=== PATIENT | male | born 1955 | race Caucasian/White ===

== ENCOUNTER → 2019-05-10 13:08 | Outpatient (CLI) | payer BC, SELFPAY ==
[2014-02-13 13:01] VITALS: BMI 24.4
[2019-05-10 14:28] LABS: Creatinine, Serum 1.09 mg/dL (0.70-1.30); EST Glomerular Filtration Rate 73 mL/min (>60); Est Glom Filt Rate - Afr Amer 88 mL/min (>60)
== END ==
PROVIDERS: Family Provider Nurse Practitioner Family; PCP Nurse Practitioner Family; Referring Provider Specialist; Visit Provider Specialist
DX: R22.32 Localized swelling, mass and lump, left upper limb (principal)
CPT/HCPCS: 36415; 82565

== ENCOUNTER → 2020-05-09 16:37 | Outpatient (CLI) | payer BC, SELFPAY ==
--- NOTE | 2020-05-09 16:39 | CT_ITS ---
STUDY: LOW DOSE CT LUNG CANCER SCREENING REASON FOR EXAM: Male, 64 years old. H/O SMOKING, 2-3 PPD X 35 YRS, COPD, WT-180 RADIATION DOSAGE (If Supplied By Facility): CTDIvol = ( 3.02 ) mGy, DLP = ( 110.23 ) mGycm TECHNIQUE: No contrast was administered. Low dose technique was utilized (average mAS-38 and kVp 120). 1.25 mm axial source images with a slice interval of 1.25-mm were reconstructed in lung windows. 2.5 mm axial source images with a slice interval of 2.5-mm were reconstructed in lung windows. 5.0 mm axial source images with a slice interval of 5.0-mm were reconstructed in soft tissue windows. Nodule measured using lung windows on PACS and/or independent workstation with automated measurement of minimum and maximum diameter. Nodule measurement reported as average diameter rounded to the nearest whole number. Growth is defined as an increase ins size of greater than 1.5 mm. COMPARISON: None. Findings: Lungs are severely emphysematous with scattered scars. There are no high-risk there is a 5 mm left lower lobe peripheral pleural contacting round solid granuloma. There is a right middle lobe calcified benign granuloma. Airways are patent. Pleural surfaces are intact. Mediastinal contents are normal. Osseous structures are intact. CT/Low Dose CT Lung Screening IMPRESSION: 1. Severe emphysema. 2. Low risk, presumably pulmonary granulomata. Follow-up in one year is advised. 3. Lung RADS category 2. IMPORTANT NOTES FOR USE: ACR Lung-RADS Version 1.0 Assessment Categories Release Date: September 13, 2013 Category: Coded 0-4 bases on nodule(s) with highest degree of suspicion. Negative screen is defined as categories 1 and 2; a positive screen is defined as categories 3 and 4. Category 3 and 4A nodules that are unchanged on interval CT should be coded as category 2, and individuals returned to screening in 12 months. Category 4X: Category 3 or 4 nodules with additional imaging findings that increase the suspicion of lung cancer, such as spiculation, GGN that doubles in size in 1 year, enlarged lymph notes, etc. Category Modifiers: S (significant finding unrelated to lung cancer) and C (prior history of treated lung cancer) may be added to the 0-4 Lung-RADS Electronically Signed: Jennifer Montano, at 18:35 EST Tel , Service support ,
== END ==
PROVIDERS: PCP Nurse Practitioner Family; Referring Provider Nurse Practitioner Family; Visit Provider Nurse Practitioner Family
DX: Z12.2 Encounter for screening for malignant neoplasm of respiratory organs (principal); J45.909 Unspecified asthma, uncomplicated; Z87.891 Personal history of nicotine dependence
CPT/HCPCS: G0297

== ENCOUNTER 2020-08-01 13:08 | Outpatient (RCR) | payer BC, SELFPAY ==
[2014-02-13 13:01] VITALS: BMI 24.4
[2020-08-01] MEDS: COVID-19 VACC, MRNA(PFIZER)/PF 30 MCG/0.3 ML SYRINGE IM (15:51)
[2020-08-22] MEDS: COVID-19 VACC, MRNA(PFIZER)/PF 30 MCG/0.3 ML SYRINGE IM (16:18)
== END 2020-08-01 23:59 ==
LOC: IMMUN 13:08
PROVIDERS: PCP Nurse Practitioner Family; Visit Provider Family Medicine
DX: Z23 Encounter for immunization (principal)
CPT/HCPCS: 0001A; 0002A; 91300

== ENCOUNTER 2021-03-06 12:33 | Emergency (ER) | payer BC, SELFPAY ==
[2021-03-06 12:34] VITALS: BP 138/92; PULSE 112; RESP 18; TEMP 36.5; O2SAT 97; BMI 25.1
--- NOTE | 2021-03-06 12:35 | RAD_ITS ---
STUDY: X-RAY CHEST REASON FOR EXAM: Male, 65 years old. Chest pain TECHNIQUE: Single AP portable view of the chest. COMPARISON: Comparison is made with prior study dated 03/10/2014. FINDINGS: There is hyperinflation of the lungs consistent with chronic obstructive lung disease (COPD). There is no demonstrated pleural abnormality. Normal size heart. Normal mediastinum and charmaine. Normal visualized pulmonary arteries. There is atherosclerotic tortuosity of the aortic arch and descending thoracic aorta. There are diffuse degenerative changes of the visualized thoracic spine. Normal visualized ribs, clavicles, and shoulders. There is no demonstrated abnormality of the visualized soft tissue structures of the upper abdomen. RAD/Chest 1 View (Portable) IMPRESSION: Hyperinflation. The lungs are clear. Electronically Signed: Darian Cantor MD at 13:46 EDT , Service support ,
--- NOTE | 2021-03-06 12:35 | EKG12_ITS ---
Test Reason : CP Blood Pressure : / mmHG Vent. Rate : 111 BPM Atrial Rate : 111 BPM P-R Int : 140 ms QRS Dur : 072 ms QT Int : 314 ms P-R-T Axes : 076 072 071 degrees QTc Int : 427 ms Sinus tachycardia Otherwise normal ECG Confirmed by ALONZO SHEIKH, KULDEEP ([id number]), business editor ROSHNI CULP ([id number]) on 03/08/2021 1:46:07 P M Referred By: Confirmed By:JOLEEN ROSADO MD
[2021-03-06 13:10] LABS: Absolute Neutrophil Count 11.4 X10^3/uL (2.0-7.7); Basophil# 0.03 X10^3/uL; Basophil% 0.2 % (0-1); Eosinophil# 0.03 X10^3/uL; Eosinophils% 0.2 % (0-5); Hematocrit 48.2 % (40-54); Hemoglobin 15.6 g/dL (13.0-16.5); Lymphocyte % 6.9 % (19-41); Mean Corp Hgb Conc 32.4 g/dL (32-36); Mean Corpuscular Hgb 29.9 pg (27.0-32.0); Mean Corpuscular Volume 92.3 fL (80-94); Mean Platelet Vol. 10.8 fl (6.2-12.0); Monocyte# 0.59 X10^3/uL; Monocyte% 4.5 % (0-10); NRBC Flagged by Analyzer 0 % (0-5); Neutrophil # 11.37 X10^3/uL (2.7-7.7); Neutrophil % 87.7 % (47-70); Platelet Count 209 K/mm3 (150-450); RBC Distribution Width CV 13.6 % (11.6-14.6); RBC Distribution Width SD 46.3 fl (35.1-43.9); Red Blood Count 5.22 M/mm3 (4.6-6.2)
[2021-03-06 13:28] LABS: Anion Gap 9 (5-15); BUN 19 mg/dL (7-18); Chloride 104 mmol/L (98-107); Creatinine, Serum 1.12 mg/dL (0.70-1.30); EST Glomerular Filtration Rate 70 mL/min (>60); Est Glom Filt Rate - Afr Amer 85 mL/min (>60); Estimated Creatinine Clearance 70.97 ml/min; Glucose 95 mg/dL (74-106); Potassium 4.1 mmol/L (3.5-5.1); Sodium Level 140 mmol/L (136-145); Troponin-I HS 4 pg/mL (3.0-78.0)
--- NOTE | 2021-03-06 14:14 | EX.ED.DYSGE1 ---
HPI History of Present Illness Chief Complaint: Chest Pain Narrative Narrative: Patient is a 65-year-old male who states he was at work today when he had intermittent bouts of left-sided chest discomfort. He describes the discomfort as painful sensation that was more achy in nature but without radiation to his neck arm or back. He denies any nausea vomiting diaphoresis or shortness of breath associated with this. He states that the pain has come and gone since his onset and would typically last for a few minutes and then resolve. He told his boss is about this as it was occurring at work and they advised him to come to the hospital for evaluation. Patient denies any fevers chills or trauma. He denies any recent surgery travel or history of DVT/PE. [facility] Medical History High cholesterol Home Medications ciprofloxacin HCl 500 mg PO BID #10 tablet 02/13/14 [Rx Last Taken Unknown] hydrocodone-acetaminophen 1 - 2 tab PO Q4H PRN PRN #20 tablet 02/13/14 [Rx Last Taken Unknown] ondansetron 4 mg PO Q8H PRN PRN #20 tab 02/13/14 [Rx Last Taken Unknown] Allergy/AdvReac Type Severity Reaction Status Date / Time No Known Allergies Allergy Verified 03/06/21 12:35 Social History Smoking Status: Current some day smoker tobacco type: cigarettes ROS ROS ED Constitutional Constitutional ED: Denies chills or fever(s) ENT ENT ED: Denies sore throat Cardiovascular Cardiovascular: Reports chest pain; Denies palpitations or racing heartbeat Respiratory/Chest Respiratory/Chest: Denies cough or dyspnea Gastrointestinal Gastrointestinal: Denies abdominal pain, diarrhea, nausea or vomiting Genitourinary Genitourinary ED: Denies dysuria Musculoskeletal Musculoskeletal: Denies myalgias Integumentary Denies rash Neurologic Neurologic: Denies headache(s) Hematologic/Lymphatic Hematologic/Lymphatic: Denies easy bleeding or easy bruising EXAM Physical Exam Const Vital Signs: 03/06/21 12:34 03/06/21 13:51 03/06/21 13:53 Temperature 97.7 F L Temperature Source Temporal Pulse Rate 112 H Respiratory Rate 18 Respiratory Effort Normal Non-Labored Blood Pressure 138/92 H Blood Pressure Mean 107 Pulse Ox 97 Oxygen Delivery Method Room Air Room Air 03/06/21 14:25 03/06/21 16:11 Temperature Temperature Source Pulse Rate 103 H 110 H Respiratory Rate 17 16 Respiratory Effort Blood Pressure 156/86 H 127/91 H Blood Pressure Mean 109 103 Pulse Ox 97 97 Oxygen Delivery Method Room Air Room Air Positive well nourished and well developed General Appearance ED: well developed HEENT Reports moist mucous membranes Eyes PERRL and EOMs intact bilaterally Neck supple Chest Wall Chest Narrative: There is mild reproducible left anterior chest wall pain on palpation without bony deformity or crepitance Resp normal respiratory effort Resp Narrative: Breath sounds are diminished throughout with faint expiratory wheeze consistent with remote history of smoking Cardio regular rhythm Rate: other Other Details: Tachycardic rate with regular rhythm. Radial pulses are +2-4 bilaterally they are equal and symmetric GI non-tender, non-distended and no masses GI Narrative: No voluntary guarding or rigidity no pulsatile mass Auscultation: normoactive bowel sounds Palpation: soft Extremity normal to inspection Extremity Narrative: No asymmetric edema no pitting edema negative Homans' sign bilaterally Neuro oriented x3 and CN's II-XII intact bilaterally Sensorium / Orientation: alert Psych mental status grossly normal Skin no rashes or lesions noted MDM MDM MDM Narrative Medical decision making narrative: Patient presented to the ER mildly tachycardic but otherwise had resolution of his chest discomfort. He is low risk for cardiac disease and pulmonary embolus but with his constellation of symptoms a cardiac work-up was obtained. Initial and delta troponin are normal but D-dimer is elevated so CTA was added. CTA revealed no pulmonary embolus infiltrate or dissection. On reevaluation he reports still resolution of pain and therefore negative work-up will be discharged. Lab Data Attestation: I reviewed the patient's lab results. Labs: Laboratory Results - last 24 hr 03/06/21 03/06/21 03/06/21 12:55 12:55 14:20 WBC 13.0 H RBC 5.22 Hgb 15.6 Hct 48.2 MCV 92.3 MCH 29.9 MCHC 32.4 RDW Std Deviation 46.3 H RDW Coeff of Julio 13.6 Plt Count 209 MPV 10.8 Immature Gran % (Auto) 0.500 Neut % (Auto) 87.7 H Lymph % (Auto) 6.9 L Dundy % (Auto) 4.5 Eos % (Auto) 0.2 Baso % (Auto) 0.2 Absolute Neuts (auto) 11.4 H Absolute Lymphs (auto) 0.90 Nucleated RBC % 0 PT INR APTT D-Dimer Quant (PE/DVT) 3.20 H* Sodium 140 Potassium 4.1 Chloride 104 Carbon Dioxide 27.0 Anion Gap 9 BUN 19 H Creatinine 1.12 Estim Creat Clear Calc 70.97 Est GFR (MDRD) Af Amer 85 Est GFR (MDRD) Non-Af 70 BUN/Creatinine Ratio 17.0 Glucose 95 Calcium 9.0 Troponin I High Sens 4 03/06/21 03/06/21 14:20 14:20 WBC RBC Hgb Hct MCV MCH MCHC RDW Std Deviation RDW Coeff of Julio Plt Count MPV Immature Gran % (Auto) Neut % (Auto) Lymph % (Auto) Dundy % (Auto) Eos % (Auto) Baso % (Auto) Absolute Neuts (auto) Absolute Lymphs (auto) Nucleated RBC % PT 12.6 INR 1.0 APTT 30.6 D-Dimer Quant (PE/DVT) Sodium Potassium Chloride Carbon Dioxide Anion Gap BUN Creatinine Estim Creat Clear Calc Est GFR (MDRD) Af Amer Est GFR (MDRD) Non-Af BUN/Creatinine Ratio Glucose Calcium Troponin I High Sens 4 Radiography Diagnostic Testing: Clinical Impression(s) from Imaging Studies Chest X-Ray 03/06/21 12:35 IMPRESSION: Hyperinflation. The lungs are clear. Electronically Signed: Darian Cantor MD at 13:46 EDT , Service support , Chest CTA 03/06/21 14:50 IMPRESSION: There is no evidence of pulmonary embolism. Hyperinflation with evidence of emphysematous changes and scarring at the lung bases. Electronically Signed: Darian Cantor MD at 15:25 EDT , Service support , Discharge Plan Triage Chief Complaint: Chest Pain ED Provider: Evert Martinez Dx/Rx/DC Orders Clinical Impression: Nonspecific chest pain Instructions: ED Chest Pain, Uncertain Cause Prescriptions: No Action hydrocodone-acetaminophen 1 TABLET tablet 1 - 2 tab PO Q4H PRN PRN (Reason: Pain) Qty: 20 RF: 0 ondansetron 4 MG tablet 4 mg PO Q8H PRN PRN (Reason: Nausea) Qty: 20 RF: 0 ciprofloxacin HCl 500 MG tablet 500 mg PO BID Qty: 10 RF: 0 Primary Care Provider: Fantasma House NP Referrals: Fantasma House NP, [employer] [Primary Care Provider] - Disposition Disposition: Home, Self Care
[2021-03-06] MEDS: Aspirin 81 MG TAB.CHEW 324 MG PO (14:23)
[2021-03-06 14:25] VITALS: BP 156/86; PULSE 103; RESP 17; O2SAT 97
[2021-03-06 14:44] LABS: Troponin-I HS 4 pg/mL (3.0-78.0)
--- NOTE | 2021-03-06 14:50 | CT_ITS ---
STUDY: CTA CHEST REASON FOR EXAM: Male, 65 years old. Chest pain with elevated D-dimer RADIATION DOSAGE (If Supplied By Facility): CTDIvol = ( 9.76 ) mGy, DLP = ( 12.41 ) mGycm TECHNIQUE: The examination was performed with the intravenous administration of IV 100mL Isovue-370. Post-processing of the angiographic images was performed, with multiplanar reformation and 3D reconstruction. Individualized dose optimization techniques were used for this CT. COMPARISON: Comparison is made with prior examination dated 05/09/2020. FINDINGS: Normal enhancement of the main pulmonary artery and right and left pulmonary arteries. Normal enhancement of the bilateral peripheral pulmonary arteries. There is no demonstrated pulmonary embolism. There is atherosclerotic calcification of the aortic arch with tortuosity. There is no demonstrated aortic dissection. Normal heart and pericardium. Normal mediastinum. Normal hilar regions. Normal visualized trachea and bronchi. Hyperinflation. Diffuse emphysematous changes with centrilobular emphysema more prominent in the upper lobes. There is evidence of a 8.6 cm x 5.4 cm bulla in the lateral aspect of the right upper lobe. There is also evidence of a septated bulla measuring 6.1 cm x 4.2 cm in the posterior lateral aspect of the lingular segment of the left upper lobe. There is evidence of bullous scarring at the lung bases slightly worse on the right lung base. Normal pleura. Normal chest wall structures. There are degenerative changes of thoracic spine. Normal visualized upper abdomen. CT/CTA Chest W/WO Contrast IMPRESSION: There is no evidence of pulmonary embolism. Hyperinflation with evidence of emphysematous changes and scarring at the lung bases. Electronically Signed: Darian Cantor MD at 15:25 EDT , Service support ,
[2021-03-06 15:00] LABS: Prothrombin Time (Protime)PT. 12.6 SECONDS (11.7-14.9)
[2021-03-06 15:01] LABS: Partial Thromboplast Time 30.6 Seconds (24.1-36.2)
[2021-03-06] MEDS: 0.9% Normal Saline 1,000 ML 999 ML IV (15:13)
[2021-03-06 16:11] VITALS: BP 127/91; PULSE 110; RESP 16; O2SAT 97
[2021-03-06 16:50] VITALS: BP 127/91; PULSE 100; RESP 16; O2SAT 97
== END 2021-03-06 16:51 | disposition home or self-care (01) ==
PROVIDERS: Emergency Provider Emergency Medicine; PCP Nurse Practitioner Family
DX: R07.9 Chest pain, unspecified (principal); F17.210 Nicotine dependence, cigarettes, uncomplicated
CPT/HCPCS: 71045; 71275; 80048; 84484; 85025; 85379; 85610; 85730; 93005; 96360; 99284; J7030; Q9967

== ENCOUNTER 2024-05-29 14:17 | Emergency (ER) | payer MEDICARE, SELFPAY ==
[2024-05-29 14:18] VITALS: BP 150/100; PULSE 128; RESP 16; TEMP 36.2; O2SAT 94; BMI 26.3
--- NOTE | 2024-05-29 14:28 | EDS_ITS ---
<Statement entered by Rhys Hernandez DO - 05/29/24 15:43> Patient was seen and examined with physician election assistant Marcia All components of the history and physical confirmed and agreed. History of present illness and physical exam: Patient is a 68-year-old male who presents to the emerged part with chief complaint of laceration to his left hand. Patient states that he was using a utility knife attempting to trim a latch to hang a wooden door when this slipped and cut his hand. Patient has no complaints at this point in time. He states that he is right-hand dominant. Patient states that he does not know when his last tetanus shot was. Review of systems: Agree with above Physical exam: Agree with above will add on the patient was able to oppose his thumb to his pinky bilaterally, give me a thumbs up sign and the okay sign bilaterally. Patient had sensation intact in the median, ulnar and radial nerve distributions bilaterally MDM Patient is a 68-year-old male who presented to the emergency department chief complaint of laceration to his left palm. There is no active bleeding noted. On the differential diagnosis includes but only to left hand laceration, flexor tendon involvement although feel this less likely as he is able to fully flex and extend all his fingers his left hand. Patient had laceration repaired here in the emergency department see procedure note above by Marcia. Patient tolerated the procedure well no complications. Patient remained neurovascular intact. Patient was encouraged to have his sutures removed approximately 7 to 10 days. He is advised to not soak his hand he is able to shower and let warm soapy water run over his hand. He is encouraged to have his family physician remove these or he can return here. He is encouraged watch out for signs infection such as surrounding redness or purulent drainage or any other concerns he should return. All question concerns answered is discharged home in stable condition. Plan: Final impression: Left hand laceration near the thenar eminence Tetanus shot updated Disposition: Patient will be discharged home in stable condition Supervising attending attestation: Rhys Hernandez D[facility] History of Present Illness Chief Complaint: Laceration Narrative Narrative: 61-year-old male was using a usability knife to try and trim a latch to hang a door when he lacerated his left palm. Stopped bleeding. He has no weakness numbness or tingling. He is right-hand dominant. Last tetanus unknown. [facility]SH [facility] Medical History High cholesterol Home Medications ?Medication ?Instructions ?Recorded ?Last Taken ?Type ciprofloxacin HCl 500 mg tablet 500 mg PO BID ##10 02/13/14 Unknown Rx hydrocodone-acetaminophen 5-325mg 1 - 2 tab PO Q4H PRN PRN Pain ##20 02/13/14 Unknown Rx 5mg-325mg ondansetron 4 mg disintegrating 4 mg PO Q8H PRN PRN Nausea #20 tabs 02/13/14 Unknown Rx tablet Allergy/AdvReac Type Severity Reaction Status Date / Time No Known Allergies Allergy Verified 05/29/24 14:21 Social History Smoking Status: Current some day smoker tobacco type: cigarettes ROS ROS ED ROS Narrative Neuro: Negative for motor or sensory dysfunction. Skin: Positive for laceration. Musc: Negative for joint pain. EXAM Physical Exam Narrative Exam Narrative: CONST: Patient sitting in no acute distress. EYES: Normal inspection. SKIN: 6 cm laceration left palmar thenar eminence to the subcutaneous tissue. No active bleeding, no foreign body. EXTREMITIES: Full range of motion of the left elbow wrist and hand. Normal motor and sensory function in median radial and ulnar distributions, 2+ radial pulse and brisk cap refill. NEURO: Alert and answering questions appropriately. PSYCH: Normal affect. Const Vital Signs: 05/29/24 14:18 Temperature 97.2 F L Temperature Source Temporal Pulse Rate 128 H Respiratory Rate 16 Blood Pressure 150/100 H Blood Pressure Mean 116 Pulse Ox 94 Oxygen Delivery Method Room Air PROC Procedures Lacerations Left palm: Length: 6 cm Depth: Sub Q Shape: Linear Prep: Sterile Conditions Laceration repair: Irrigated, Lidocaine and Local Irrigated (ml): 250 Number of Sutures/Papa: 10 Suture Information: Vicryl and 4-0 MDM MDM MDM Narrative Medical decision making narrative: Patient is a 6 cm laceration on his left palmar eminence area from a utility knife. There is no active bleeding. He has full range of motion of his hand and digits including the thumb. Neurovascular intact. I am not concerned for tendon injury. I closed the area with 10 simple interrupted sutures. See procedure note. His tetanus was updated, given wound care instructions, discharged in stable condition. Discharge Plan Triage Chief Complaint: Laceration ED Midlevel Provider: Marcia Rodríguez ED Provider: Rhys Hernandez Dx/Rx/DC Orders Clinical Impression: Laceration of hand, left Instructions: ED Laceration Extremity Prescriptions: No Action hydrocodone-acetaminophen 1 TABLET tablet 1 - 2 tab PO Q4H PRN PRN (Reason: Pain) Qty: 20 0RF ondansetron 4 MG tablet 4 mg PO Q8H PRN PRN (Reason: Nausea) Qty: 20 0RF ciprofloxacin HCl 500 MG tablet 500 mg PO BID Qty: 10 0RF Primary Care Provider: [facility] NP Referrals: Fant[facility] AUDIO VISUAL AIDS DIRECTOR, AUDIO VISUAL AIDS DIRECTOR-C [Primary Care Provider] - Activity Restrictions/Additional Instructions: 10 stitches were placed in your left hand which need removed in 7 to 10 days. Be reevaluated immediately if any signs of infection develop such as redness, swelling, pus, fever, or increased pain. Print Language: Kazakh Disposition Disposition: Home, Self Care
[2024-05-29] MEDS: Lidocaine 1% (20 ml mdv) 20 ML Vial INFILT (14:33)
[2024-05-29] MEDS: Diphth,Pertuss(Acell),Tet Vac 0.5 ML Vial IM (14:33)
[2024-05-29 15:50] VITALS: BP 136/89; PULSE 100; RESP 16; TEMP 36.2; O2SAT 94
== END 2024-05-29 15:51 | disposition home or self-care (01) ==
LOC: ED 15:38
PROVIDERS: Emergency Provider Emergency Medicine; PCP Nurse Practitioner Family; Visit Provider Emergency Medicine
DX: S61.412A Laceration without foreign body of left hand, initial encounter (principal); W26.0XXA Contact with knife, initial encounter; Y93.89 Activity, other specified; F17.210 Nicotine dependence, cigarettes, uncomplicated; Z23 Encounter for immunization
CPT/HCPCS: 12002; 90715; 99283